=== PATIENT | male | born 1990 | race African-American/Black ===

== ENCOUNTER 2021-05-11 18:31 | Emergency (ER) | payer OTHER ==
[~2021-05-11 18:31] MED LIST: FLOMAX 0.4 MG0.4 MG PO; NAPROXEN500 MG PO; NORCO 5-325 TA1 EACH PO; TOPROL XL 25MG25 MG PO
[2021-05-11 19:19] LABS: BASOPHIL 0.4 % (0-2); EOSINOPHIL 3.1 % (0-5); HCT 40.4 % (42.0-52.0); HGB 13.6 g/dl (13.2-18.0); LYMPHOCYTE 33.4 % (15-48); MCH 31.3 pg (25.0-31.0); MCHC 33.7 g/dL (32.0-36.0); MCV 92.9 fL (78.0-100.0); MONOCYTE 5.7 % (0-12); MPV 9.9 fL (6.0-9.5); NEUTROPHIL 57.1 % (41-80); NRBC 0; PLT 486 K/uL (150-400); RBC 4.35 M/uL (4.70-6.00); RDW 13.1 % (11.5-14.0); WBC 14.4 K/uL (4.0-10.5)
[2021-05-11 19:49] LABS: BUN/CREAT RATIO (CALC) 10.4 RATIO; CREATININE 0.77 mg/dL (0.67-1.17); POTASSIUM 3.4 mmol/L (3.5-5.1)
[2021-05-11 19:55] LABS: BILIRUBIN 1+ mg/dL (NEGATIVE); BLOOD 3+ Ery/uL (NEGATIVE); CLARITY CLEAR (CLEAR); COLOR YELLOW (YELLOW); GLUCOSE (U) NORMAL (NORMAL); LEUKOCYTES NEGATIVE Leu/uL (NEGATIVE); NITRITE NEGATIVE (NEGATIVE); PROTEIN TRACE (LOW) mg/dL (NEGATIVE); SPECIFIC GRAVITY 1.025 (1.001-1.030)
[2021-05-11 20:09] LABS: URINARY WBC RARE
[2021-05-11 20:24] LABS: LACTIC ACID 2.5 mmol/L (0.4-1.9)
[2021-05-12] MEDS ORDERED: KETOROLAC TROME10 MG PO (00:34)
[2021-05-12] MEDS ORDERED: FLOMAX 0.4 MG0.4 MG PO (00:34)
[2021-05-12] MEDS ORDERED: ZOFRAN4 M1 PO (00:35)
== END 2021-05-12 02:05 | disposition home or self-care (01) ==
LOC: FER 18:31
PROVIDERS: Emergency Medicine
DX: R10.9 Unspecified abdominal pain (principal); F17.290 Nicotine dependence, other tobacco product, uncomplicated
CPT/HCPCS: 36415; 80048; 81001; 83605; 84484; 85025; 87040; 93005; J1170; J1885; J2405; J2543; J7030

== ENCOUNTER 2021-09-27 06:53 | Emergency (ER) | payer OTHER ==
[~2021-09-27 06:53] MED LIST changes: +KETOROLAC TROME10 MG PO; +ZOFRAN4 M1 PO
[2021-09-27 07:45] LABS: BASOPHIL 0.5 % (0-2); EOSINOPHIL 1.1 % (0-5); HCT 49.2 % (42.0-52.0); HGB 16.7 g/dl (13.2-18.0); LYMPHOCYTE 53.8 % (15-48); MCH 30.9 pg (25.0-31.0); MCHC 33.9 g/dL (32.0-36.0); MCV 90.9 fL (78.0-100.0); MONOCYTE 6.4 % (0-12); MPV 9.1 fL (6.0-9.5); NRBC 0; PLT 408 K/uL (150-400); RBC 5.41 M/uL (4.70-6.00); RDW 13.6 % (11.5-14.0); WBC 9.3 K/uL (4.0-10.5)
[2021-09-27 08:58] LABS: BILIRUBIN - TOTAL 0.8 mg/dL (0.2-1.0); BUN/CREAT RATIO (CALC) 6.6 RATIO; CREATININE 0.76 mg/dL (0.67-1.17); GLOBULIN (CALCULATION) 5.1 g/dL; POTASSIUM 3.4 mmol/L (3.5-5.1); TOTAL PROTEIN 9.1 g/dL (6.4-8.2)
[2021-09-28 06:08] LABS: HBSAG SCREEN Negative (Negative); HEP A AB, IGM Negative (Negative); HEP B CORE AB, IGM Negative (Negative); HEP C VIRUS AB <0.1 (0.0-0.9)
== END 2021-09-27 11:05 | disposition home or self-care (01) ==
LOC: FER 06:53
PROVIDERS: Emergency Medicine
DX: R00.0 Tachycardia, unspecified (principal); R79.89 Other specified abnormal findings of blood chemistry; Z20.822 Contact with and (suspected) exposure to COVID-19
CPT/HCPCS: 36415; 71045; 71275; 80053; 80074; 83880; 84443; 84484; 85025; 85379; 93005; J7030; Q9967; U0002

== ENCOUNTER 2021-10-19 21:48 | Emergency (ER) | payer OTHER ==
[2021-10-19 22:32] LABS: BASOPHIL 0.5 % (0-2); EOSINOPHIL 0.6 % (0-5); HCT 46.2 % (42.0-52.0); HGB 16.1 g/dl (13.2-18.0); LYMPHOCYTE 32.2 % (15-48); MCH 32.1 pg (25.0-31.0); MCHC 34.8 g/dL (32.0-36.0); MONOCYTE 7.7 % (0-12); NEUTROPHIL 58.7 % (41-80); NRBC 0; PLT 433 K/uL (150-400); RBC 5.02 M/uL (4.70-6.00); RDW 15.9 % (11.5-14.0); WBC 12.8 K/uL (4.0-10.5)
[2021-10-19 22:40] LABS: INR 1.11 (0.9-1.2); PROTHROMBIN TIME 13.7 SECONDS (11.8-13.4); PTT 28.2 SECONDS (24.4-34.7)
[2021-10-19 23:08] LABS: ALBUMIN 3.8 g/dL (3.4-5.0); BILIRUBIN - TOTAL 1.9 mg/dL (0.2-1.0); BUN/CREAT RATIO (CALC) 5.2 RATIO; CREATININE 0.77 mg/dL (0.67-1.17); GLOBULIN (CALCULATION) 5.2 g/dL; POTASSIUM 3.2 mmol/L (3.5-5.1)
[2021-10-20] MEDS ORDERED: LIBRIUM25 MG PO (03:54)
[2021-10-20] MEDS ORDERED: TOPROL XL 25MG25 MG PO (03:54)
[2021-10-20] MEDS ORDERED: PHENERGAN25 M1 PO (03:54)
== END 2021-10-20 04:23 | disposition home or self-care (01) ==
LOC: FER 21:48
PROVIDERS: Emergency Medicine Emergency Medical Services
DX: R07.89 Other chest pain (principal); E87.6 Hypokalemia; F10.239 Alcohol dependence with withdrawal, unspecified; I10 Essential (primary) hypertension; F17.200 Nicotine dependence, unspecified, uncomplicated; Z79.899 Other long term (current) drug therapy
CPT/HCPCS: 36415; 71045; 80053; 83690; 84484; 85025; 85610; 85730; 93005; J2060; J3411; J3475; J7030

== ENCOUNTER 2021-12-10 13:05 | Emergency (ER) | payer OTHER ==
[~2021-12-10] VITALS: Ht 167.6 cm; Wt 108.9 kg
[~2021-12-10 13:05] MED LIST changes: +LIBRIUM25 MG PO; +PHENERGAN25 M1 PO
[2021-12-10 15:22] LABS: BUN/CREAT RATIO (CALC) 7.2 RATIO; CREATININE 0.69 mg/dL (0.67-1.17); POTASSIUM 3.4 mmol/L (3.5-5.1)
[2021-12-10 15:29] LABS: BASOPHIL 0.7 % (0-2); EOSINOPHIL 0.5 % (0-5); HCT 46.1 % (42.0-52.0); HGB 15.7 g/dl (13.2-18.0); LYMPHOCYTE 34.3 % (15-48); MCH 31.7 pg (25.0-31.0); MCHC 34.1 g/dL (32.0-36.0); MCV 92.9 fL (78.0-100.0); MONOCYTE 5.8 % (0-12); MPV 9.4 fL (6.0-9.5); NEUTROPHIL 58.3 % (41-80); NRBC 0; PLT 340 K/uL (150-400); RBC 4.96 M/uL (4.70-6.00); RDW 15.1 % (11.5-14.0); WBC 10.1 K/uL (4.0-10.5)
[2021-12-10] MEDS ORDERED: LIBRIUM25 MG PO ×2 (16:38→19:07)
== END 2021-12-10 16:50 | disposition home or self-care (01) ==
LOC: FER 13:05
PROVIDERS: Nurse Practitioner Family
DX: F10.139 Alcohol abuse with withdrawal, unspecified (principal); I10 Essential (primary) hypertension; Z79.899 Other long term (current) drug therapy
CPT/HCPCS: 36415; 80048; 85025; G0480; J3411; J3475; J7120